=== PATIENT | female | born 1970 | race Caucasian/White ===

== ENCOUNTER 2016-12-19 20:58 | Observation (INO) | payer OTHER ==
[~2016-12-19] VITALS: Ht 160 cm; Wt 70.0 kg
[~2016-12-19 20:58] MED LIST: IBUP800T23 PO; LEVO50TA4 PO; TRAM50TA PO; TRAZ50TA12 PO
[2016-12-19 21:00] VITALS: BP 134/96; PULSE 117; RESP 16; TEMP 99; O2SAT 99
[2016-12-20] VITALS (9 sets, daily range): BP systolic 112–149; BP diastolic 74–92; PULSE 84–113; RESP 16–20; TEMP 99; O2SAT 93–99
[2016-12-20] MEDS ORDERED: HYDR25TA5 PO (00:23)
[2016-12-20] MEDS ORDERED: AMLO5TAB2 PO (00:23)
[2016-12-20] MEDS ORDERED: BIRTH CONTROL (00:24)
[2016-12-20] MEDS ORDERED: ASPIRIN 81 MG CHEW TAB PO ONE (00:45)
[2016-12-20] MEDS ORDERED: SODIUM CHLORIDE 0.9% FLUSH 5 ML FLUSH IVF PRN ×2 (00:45→03:00)
--- NOTE | 2016-12-20 00:48 | PD ---
HPI Chief Complaint: Chest Pain Time Seen by Provider: 00:39 Travel History International Travel<30 days: No Contact w/Intl Traveler<30days: No Traveled to known affect area: No History of Present Illness HPI 45-year-old female here by private vehicle for evaluation of chest pain. At around 6:00 PM the patient began to experience substernal chest pain which she described as sharp/pressure. Pain is nonradiating, no modifying factors. Pain has improved significantly since she first noticed the pain, however she is still having pain in her chest. No known history of coronary artery disease. States that she was recently evaluated by manager contracting Dr. Esquivel, and had a Holter monitor, however she does not know the results. No history of DVT or PE. She reports history of hypertension and family history of hypertension. She is a nonsmoker. No paresthesias or motor deficits. No fevers. Reports recent cough/upper respiratory symptoms. PFSH Past Medical History Anxiety: Yes Cardiovascular Problems: Yes Diminished Hearing: No Thyroid Disease: Yes (HYPO) ?: Not LMP: "A MONTH AGO" : 4 Para: 3 Miscarriage: 1 : 0 Ectopic : Yes Tubal Ligation: Yes (ATTEMPTED TUBAL LIGATION. PT WAS OPERATED ON BUT PROC NOT COMPLETED) Past Surgical History Abdominal Surgery: Yes (BLADDER SLING ) Tonsillectomy: Yes Social History Alcohol Use: Yes (OCC. ) Tobacco Use: Yes (SOCIALLY) Substance Use: No Allergies-Medications (Allergen,Severity, Reaction): Coded Allergies: No Known Allergies (Unverified , 12/19/16) Reported Meds & Prescriptions Reported Meds & Active Scripts Active Reported [ Control ] Amlodipine (Amlodipine Besylate) 5 Mg Tab 5 Mg PO DAILY Hydrochlorothiazide 25 Mg Tab 25 Mg PO DAILY Trazodone (Trazodone HCl) 50 Mg Tab 50 Mg PO HS Levothyroxine (Levothyroxine Sodium) 50 Mcg Tab 50 Mcg PO DAILY Review of Systems Except as stated in HPI: all other systems reviewed are Neg Physical Exam Narrative GENERAL: Well-developed, well-nourished, comfortable, no acute distress. SKIN: Warm and dry. No rash. HEAD: Atraumatic. Normocephalic. EYES: Pupils equal and round. No scleral icterus. No injection or drainage. ENT: Mucous membranes pink and moist. NECK: Trachea midline. No JVD. CARDIOVASCULAR: Regular rate and rhythm. Holosystolic murmur. Distal pulses brisk and equal bilaterally. RESPIRATORY: No accessory muscle use. Clear to auscultation. Breath sounds equal bilaterally. GASTROINTESTINAL: Abdomen soft, non-tender, nondistended. MUSCULOSKELETAL: No obvious deformities. No clubbing. No cyanosis. No edema. NEUROLOGICAL: Awake and alert. No obvious cranial nerve deficits. Motor grossly within normal limits. Normal speech. PSYCHIATRIC: Appropriate mood and affect; insight and judgment normal. Data Data Last Documented VS Vital Signs Date Time Temp Pulse Resp B/P Pulse Ox O2 Delivery O2 Flow Rate FiO2 12/20/16 02:24 113 18 149/92 94 Room Air 12/19/16 21:00 99.0 Orders Electrocardiogram (12/19/16 21:04) Complete Blood Count With Diff (12/20/16 00:44) Comprehensive Metabolic Panel (12/20/16 00:44) Act Partial Throm Time (Ptt) (12/20/16 00:44) Prothrombin Time / Inr (Pt) (12/20/16 00:44) Ckmb (Isoenzyme) Profile (12/20/16 00:44) Troponin I (12/20/16 00:44) Influenzae A/B Antigen (12/20/16 00:44) Iv Access Insert/Monitor (12/20/16 00:44) Ecg Monitoring (12/20/16 00:44) Oximetry (12/20/16 00:44) Chest, Single Ap (12/20/16 00:44) Ct Pulmonary Angiogram (12/20/16 00:44) Sodium Chloride 0.9% Flush (Ns Flush) (12/20/16 00:45) Beta Hcg (Quant/Titer) (12/20/16 00:44) Aspirin Chew (Aspirin Chew) (12/20/16 00:45) CKMB (12/20/16 01:00) CKMB% (12/20/16 01:00) Potassium Cl 40 Meq/30 Ml Liq (Kcl 40 Me (12/20/16 01:45) Iohexol 350 Inj (Omnipaque 350 Inj) (12/20/16 02:12) Labs Laboratory Tests Test 12/20/16 01:00 White Blood Count 12.9 TH/MM3 Red Blood Count 5.69 MIL/MM3 Hemoglobin 15.4 GM/DL Hematocrit 45.2 % Mean Corpuscular Volume 79.4 FL Mean Corpuscular Hemoglobin 27.0 PG Mean Corpuscular Hemoglobin 34.0 % Concent Red Cell Distribution Width 13.7 % Platelet Count 394 TH/MM3 Mean Platelet Volume 8.5 FL Neutrophils (%) (Auto) 57.3 % Lymphocytes (%) (Auto) 32.9 % Monocytes (%) (Auto) 8.2 % Eosinophils (%) (Auto) 1.2 % Basophils (%) (Auto) 0.4 % Neutrophils # (Auto) 7.4 TH/MM3 Lymphocytes # (Auto) 4.2 TH/MM3 Monocytes # (Auto) 1.1 TH/MM3 Eosinophils # (Auto) 0.2 TH/MM3 Basophils # (Auto) 0.1 TH/MM3 CBC Comment DIFF FINAL Differential Comment Prothrombin Time 10.5 SEC Prothromb Time International 1.0 RATIO Ratio Activated Partial 29.4 SEC Thromboplast Time Sodium Level 136 MEQ/L Potassium Level 3.3 MEQ/L Chloride Level 98 MEQ/L Carbon Dioxide Level 28.0 MEQ/L Anion Gap 10 MEQ/L Blood Urea Nitrogen 11 MG/DL Creatinine 0.95 MG/DL Estimat Glomerular Filtration 64 ML/MIN Rate Random Glucose 86 MG/DL Calcium Level 9.0 MG/DL Total Bilirubin 0.2 MG/DL Aspartate Amino Transf 21 U/L (AST/SGOT) Alanine Aminotransferase 29 U/L (ALT/SGPT) Alkaline Phosphatase 88 U/L Total Creatine Kinase 116 U/L Creatine Kinase MB LESS THAN 0.5 NG/ML Troponin I LESS THAN 0.02 NG/ML Total Protein 8.6 GM/DL Albumin 3.8 GM/DL Human Chorionic Gonadotropin, LESS THAN 1 Quant MIU/ML MDM Medical Decision Making Medical Screen Exam Complete: Yes Emergency Medical Condition: Yes Interpretation(s) EKG: Sinus, rate 101, left axis deviation, normal intervals, no acute ischemic abnormality. Differential Diagnosis ACS, pneumothorax, pericarditis, PE, pneumonia, musculoskeletal pain Narrative Course Vital signs reviewed. CBC shows WBC 12.9, hemoglobin 15.4, hematocrit 45.2, platelets 394. CMP is remarkable for potassium 3.3 which was replaced orally, otherwise unremarkable. Cardiac enzymes are negative. Beta hCG is negative. Chest x-ray read as no acute disease. CT pulmonary angiogram read as unremarkable study. Patient was made aware of all findings. She is sleeping comfortably. She is still complaining of some chest discomfort. She was given aspirin. Potassium replaced orally. She will be admitted to the chest pain center for further cardiac evaluation. She is amenable to this plan. Diagnosis Primary Impression: Chest pain Qualified Code: R07.9 - Chest pain, unspecified type Admitting Information Admitting Physician Requests: Joe Meneses MD Dec 20, 2016 00:48
--- NOTE | 2016-12-20 01:14 | RADRPT ---
EXAM DATE/TIME: 12/20/2016 00:42 [facility] COMPARISON: No previous studies available for comparison. INDICATIONS : Shortness of breath. MEDICAL HISTORY : None. SURGICAL HISTORY : None. ENCOUNTER: Initial ACUITY: 1 day PAIN SCORE: 0/10 LOCATION: Bilateral chest FINDINGS: The lungs are clear without infiltrate, nodule, or mass. There is no appreciable pleural effusion fo r technique. Heart and mediastinum are unremarkable. CONCLUSION: No acute cardiopulmonary disease. Desean Shepherd MD on December 20, 2016 at 1:12 Board Certified Radiologist. This report was verified electronically.
[2016-12-20 01:17] LABS: AUTOMATED NEUTROPHIL # 7.4 TH/MM3 (1.8-7.7); BASOPHIL # 0.1 TH/MM3 (0-0.2); BASOPHIL % 0.4 % (0.0-2.0); EOSINOPHIL # 0.2 TH/MM3 (0-0.4); EOSINOPHIL % 1.2 % (0.0-4.0); HEMATOCRIT 45.2 % (35.0-46.0); HEMO FLAGS DIFF FINAL; LYMPH % 32.9 % (9.0-44.0); LYMPHOCYTE # 4.2 TH/MM3 (1.0-4.8); MEAN CELL VOLUME 79.4 FL (80.0-100.0); MONO % 8.2 % (0.0-8.0); NEUT % 57.3 % (16.0-70.0); PLATELET COUNT 394 TH/MM3 (150-450); RED BLOOD COUNT 5.69 MIL/MM3 (4.00-5.30); RED CELL DISTRIBUTION WIDTH 13.7 % (11.6-17.2); WHITE BLOOD COUNT 12.9 TH/MM3 (4.0-11.0)
[2016-12-20 01:28] LABS: APTT (PATIENT) 29.4 SEC (24.3-30.1); PROTHROMBIN TIME - PATIENT 10.5 SEC (9.8-11.6)
[2016-12-20 01:33] LABS: ALT (GPT) 29 U/L (10-53); ANION GAP 10 MEQ/L (5-15); AST (GOT) 21 U/L (15-37); BLOOD UREA NITROGEN 11 MG/DL (7-18); CHLORIDE 98 MEQ/L (98-107); GLOMERULAR FILTRATION RATE 64 ML/MIN (>89); POTASSIUM 3.3 MEQ/L (3.5-5.1); SODIUM (NA) 136 MEQ/L (136-145)
[2016-12-20 01:37] LABS: ALKALINE PHOSPHATASE 88 U/L (45-117); BETA HCG QUANT LESS THAN 1 MIU/ML (0-5); CREATINE KINASE 116 U/L (26-192); TOTAL BILIRUBIN ADULT 0.2 MG/DL (0.2-1.0)
[2016-12-20] MEDS ORDERED: POTASSIUM CL 40 MEQ/30 ML LIQ UDC PO ONE (01:45)
[2016-12-20 01:49] LABS: CKMB LESS THAN 0.5 NG/ML (0.5-3.6)
[2016-12-20] MEDS ORDERED: IOHEXOL 350 MG/ML 10 ML VIAL (for RAD DIAG) IV ONE (02:12)
--- NOTE | 2016-12-20 02:44 | RADRPT ---
EXAM DATE/TIME: 12/20/2016 02:03 [facility] COMPARISON: CT THORAX W CONTRAST, October 20, 2016, 15:29. INDICATIONS : Chest pain and short of breath IV CONTRAST: 65 cc Omnipaque 350 (iohexol) IV RADIATION DOSE: 23.18 CTDIvol (mGy) MEDICAL HISTORY : Cardiovascular disease. SURGICAL HISTORY : Tubal ligation. bladder sling. ENCOUNTER: Initial ACUITY: 1 day PAIN SCALE: 9/10 LOCATION: chest TECHNIQUE: Volumetric scanning of the chest was performed using a pulmonary embolism protocol MIP images were re constructed. Using automated exposure control and adjustment of the mA and/or kV according to patien t size, radiation dose was kept as low as reasonably achievable to obtain optimal diagnostic quality images. FINDINGS: The lungs are clear without infiltrate, nodule, or mass. There is no pleural effusion. No appreciab le pathological adenopathy is seen within the mediastinum. There is no evidence for PE for technique. CONCLUSION: Unremarkable study. Desean Shepherd MD on December 20, 2016 at 2:41 Board Certified Radiologist. This report was verified electronically.
[2016-12-20 05:07] LABS: CREATINE KINASE 119 U/L (26-192)
[2016-12-20 05:18] LABS: CKMB LESS THAN 0.5 NG/ML (0.5-3.6)
[2016-12-20 08:20] LABS: CREATINE KINASE 103 U/L (26-192)
[2016-12-20 08:32] LABS: CKMB LESS THAN 0.5 NG/ML (0.5-3.6)
[2016-12-20] MEDS ORDERED: SODIUM CHLORIDE 0.9% FLUSH 5 ML FLUSH IVF SCH (09:00)
[2016-12-20] MEDS ORDERED: amLODIPine BESYLATE 5 MG TAB PO SCH (12:30)
[2016-12-20] MEDS ORDERED: HYDROCHLOROTHIAZIDE 25 MG TAB PO SCH (12:30)
[2016-12-20] MEDS ORDERED: LEVOTHYROXINE SODIUM 50 MCG TAB PO SCH (12:30)
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
[2016-12-20] MEDS ORDERED: AMLO10TA2 PO (14:05)
[2016-12-20] MEDS ORDERED: ALPRAZolam 0.25 MG TAB PO ONE (14:15)
--- NOTE | 2016-12-20 15:34 | MH ---
cc: NANCY BAR MD DATE OF ADMISSION: 12/20/2016 DATE OF : 1970 CHIEF COMPLAINT Chest pain HISTORY OF PRESENT ILLNESS This is a 45-year-old patient who presents with an increasing chest tightness and shortness of breath for the past week. The patient is very concerned her blood pressure is not being controlled on her current blood pressure medication. The patient as been following with Dr. Esquivel and 2 weeks ago she was given a order for amlodipine 5 mg daily and last week she was given a prescription of hydrochlorothiazide 12.5 mg daily which she has been compliant with. PAST MEDICAL HISTORY: past medical history includes newly diagnosed hypertension. FAMILY HISTORY: Family history is noncontributory for any early onset cardiovascular disease. SOCIAL HISTORY She is currently working and going through a divorce denies any alcohol or illegal drug use. Recently has been diagnosed with hypertension. No known diabetes or hypercholesterol. CARDIAC TESTING: She has not had any cardiac testing in the past she has been following with Dr. Esquivel, recently she has had a Holter monitor placed in an echocardiogram and she is scheduled for an appointment in the next couple weeks to follow up on those testings. ALLERGIES She is not allergic to any medication MEDICATIONS Current medications include 1. Amlodipine 5 mg daily. 2. Hydrochlorothiazide 25 mg daily. 3. Levothyroxine 50 mcg daily. 4. control pill. 5. Trazodone 50 mg q.h.s. 6. The patient admits that she has been taking 10 mg of amlodipine the last 6 days and has not told Dr. Esquivel that she has been taking this dose for the past week. REVIEW OF SYSTEMS Review of systems generally been in her general state of health with no recent illness, fevers, chills. HEAD, EYES, EARS, NOSE, AND THROAT: No headache or dysphagia, although she does states when her blood pressure is elevated she is noted to have a headache but this has since been improving. CARDIOVASCULAR SYSTEM: As stated above. RESPIRATORY: No shortness of breath, cough, wheeze, has been diagnosed with asthma approximately 4 to 5 years ago and has an albuterol inhaler which she uses approximately twice a week. GENITOURINARY: No dysuria, urgency, frequency. EXTREMITIES: No lower leg edema or pain. MUSCULOSKELETAL: No change in range of motion. NEUROLOGIC: No difficulty balance, motor, sensory deficits or loss of consciousness. PSYCHIATRIC: She does report anxiety. No depression. She has had situational stress. She is going through divorce. PHYSICAL EXAMINATION VITAL SIGNS: Temperature 99, Pulse 98, blood pressure 119/74, 20% and pulse oximetry 98% on room air. IN GENERAL: She is alert, well-nourished, well-developed in no acute distress pleasant female. HEAD, EYES, EARS, NOSE, AND THROAT: Head: Normocephalic, atraumatic. Eyes: Sclerae clear. Pupils was and round. Conjunctivae without injection. CARDIOVASCULAR SYSTEM: She has a regular rate and rhythm with a grade 2 over six systolic murmur with no rub or gallop. No JVD. S1-S2. No S3. No S4. RESPIRATORY: Clear lungs throughout bilaterally with no crackles, wheeze or rhonchi. She has symmetrical chest rise and nonlabored. ABDOMEN: The abdomen is soft, nontender, nondistended. Positive bowel tones. BACK: No costovertebral angle tenderness. No scoliosis. EXTREMITIES: Pulses +2 x4. There is no dependent edema. NEUROLOGIC: Cranial nerves II through XII grossly intact. Motor strength 5/5 gait is within normal limits. MUSCULOSKELETAL: Normal tone x4. No obvious deformities. Moving all extremities with equal strength. PSYCHIATRIC: Psych she is alert and oriented x3 has a flat affect. This has appropriate insight and judgment. SKIN: Normal turgor, normal texture. Skin is warm and dry. LABORATORY CBC has a WBC of 12.9 and hemoglobin of 15.4 otherwise unremarkable. Chemistry has potassium of 3.3 otherwise unremarkable. Three sets of cardiac enzymes are all negative regulations unremarkable. Chest x-ray Read by radiologist has conclusion of no acute cardiopulmonary disease. Also a CT angiograph was completed with a conclusion of an unremarkable study at three EKG's showed normal sinus rhythm with a left axis deviation. ASSESSMENT/PLAN 1. Chest pain. Patient has been admitted to the chest pain center was ruled out with three sets of EKG's and cardiac enzymes and monitored throughout the evening. She has also seen evaluated by Dr. Nancy Bar. She underwent an exercise stress test which was essentially unremarkable. She will be later discharged this afternoon. She has been encouraged to follow up with Dr. Esquivel. 2. Anxiety. Discussed with the patient the effects of situational stress and anxiety in regards to her blood pressure. The patient states her primary care provider as actually on room per prescription of Xanax to be picked up at a primary care office. She has she has not had a chance to pick the medication up and also she was not sure if this would was actually be beneficial for her to take. Discussed and counseled her at length to meat pickler the antianxiety medications and to keep in close contact with a primary care provider regarding her situational stress and anxiety issues. 3. Hypertension. Discussed with the patient to continue to take her blood pressure log at different times throughout the day for the next 2 weeks and take blood pressure log to her appointment with Dr. Esquivel. I explained to her, if she has a high blood pressure number that she is not to take an additional medicine, that she has a take her medication as prescribed. She says she has been taking amlodipine 10 mg for the last week. We will provide her with that dose. I have encouraged her to again let Dr. Esquivel know if she has made any changes of her medications and to make her aware of this change. DICTATED BY: LUTHER Carrero Werner Vergara /2:58 PM /9:13 AM
--- NOTE | 2016-12-20 15:58 | EKG ---
Date Performed: 12/20/2016 Time Performed: 07:23:26 PTAGE: 45 years EKG: Sinus rhythm BORDERLINE LEFT AXIS DEVIATION MODERATE VOLTAGE CRITERIA FOR LVH, CONSIDER NORMAL VARIANT BORDERLINE ECG Since PREVIOUS TRACING , no significant change noted PREVIOUS TRACIN12/20/2016 03.14 DOCTOR: Loly Funes Interpretating Date/Time 12/20/2016 15:57:33
--- NOTE | 2016-12-20 15:59 | EKG ---
Date Performed: 12/20/2016 Time Performed: 03:14:03 PTAGE: 45 years EKG: Sinus rhythm BORDERLINE LEFT AXIS DEVIATION MINIMAL VOLTAGE CRITERIA FOR LVH, CONSIDER NORMAL VARIANT BORDERLINE ECG Since PREVIOUS TRACING , no significant change noted PREVIOUS TRACIN12/19/2016 21.09 DOCTOR: Loly Funes Interpretating Date/Time 12/20/2016 15:58:25
--- NOTE | 2016-12-20 16:01 | EKG ---
Date Performed: 12/19/2016 Time Performed: 21:09:02 PTAGE: 45 years EKG: SINUS TACHYCARDIA POSSIBLE LEFT ATRIAL ENLARGEMENT ABNORMAL RHYTHM ECG Since PREVIOUS TRACING , no significant change noted PREVIOUS TRACIN08/30/2016 14.43 DOCTOR: Loly Funes Interpretating Date/Time 12/20/2016 16:00:05
--- NOTE | 2016-12-21 12:13 | TR ---
Date Performed: 12/20/2016 Time Performed: 11:24:18 DOCTOR: Clint Miller DRUG LIST: CLINICAL HISTORY: REASON FOR TEST: REASON FOR ENDING: OBSERVATION: CONCLUSION: [facility] protocol completed. Stopped sec to exceeding target heart rate and leg fatigue . Maximum AT=929 Target HR Achieved=92.0% Maximum CT=842/90 Total Exercise Time=5:17. Fair exercise t olerance. No st segment changes to sugg ischemia. No ectopy. Possible electrical alternans. Reprod ch est tightness, sob, and headache. Normal bp response. Recovery was prolonged. Chest tightness not imp roved during recovery. COMMENTS: CONCLUSION: Normal exercise treadmill. No evidence of ischemia.
== END 2016-12-20 17:47 | disposition home or self-care (01) ==
LOC: NEPE 20:58 → NEDA 12-20 02:53 → NEDH 12-20 06:51 → NEPHCDU 12-20 12:12
PROVIDERS: ADMIT Internal Medicine Interventional Cardiology; ATTEND Internal Medicine Interventional Cardiology
DX: R07.9 Chest pain, unspecified (principal); I10 Essential (primary) hypertension; R05 Cough; Z79.899 Other long term (current) drug therapy; F41.9 Anxiety disorder, unspecified
CPT/HCPCS: 71010; 71275; 80053; 82550; 82552; 84484; 84702; 85025; 85610; 85730; 87804; 93005; 93017; 99285; G0378; Q9967

== ENCOUNTER 2017-10-19 14:33 | Emergency (ER) | payer OTHER ==
[~2017-10-19] VITALS: Ht 160 cm; Wt 68.0 kg
[~2017-10-19 14:33] MED LIST changes: +AMLO10TA2 PO; +BIRTH CONTROL; +HYDR25TA5 PO; -IBUP800T23 PO; -TRAM50TA PO
[2017-10-19 14:34] VITALS: BP 141/91; PULSE 85; RESP 18; TEMP 99.5; O2SAT 100
[2017-10-19] MEDS ORDERED: MELO7.5T27 PO (16:04)
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
== END 2017-10-19 16:23 | disposition home or self-care (01) ==
LOC: NEPK 14:33 → NETRI 16:23
DX: M54.2 Cervicalgia (principal); G89.29 Other chronic pain; M54.9 Dorsalgia, unspecified; I10 Essential (primary) hypertension; E03.9 Hypothyroidism, unspecified; F41.9 Anxiety disorder, unspecified; Z72.0 Tobacco use; Z79.899 Other long term (current) drug therapy
CPT/HCPCS: 99283